=== PATIENT | male | born 1960 | race Caucasian/White ===

== ENCOUNTER 2018-10-19 07:51 | Emergency (ER) | payer OTHER ==
[2018-10-19] MEDS ORDERED: NITROGLYCERIN 0.4 MG TAB SL ONE (08:02)
[2018-10-19] MEDS ORDERED: ASPIRIN 81 MG CHEWABLE CTB ONE (08:02)
[2018-10-19 08:04] VITALS: RESP 18; TEMP 97.6
[2018-10-19] MEDS: NITROGLYCERIN 0.4 MG TAB SL PRN ×5 (08:04→09:29)
[2018-10-19] MEDS ORDERED: SODIUM CHLORIDE 0.9% FLUSH 10 ML SOL IV PRN (08:04)
[2018-10-19] MEDS ORDERED: ASPIRIN 81 MG CHEWABLE CTB PO STA (08:04)
[2018-10-19] MEDS ORDERED: MORPHINE SULFATE 10 MG/ML SOL IV PRN (08:04)
[2018-10-19 08:12] LABS: BASOPHILS % (AUTO) 1 % (0-3); EOSINOPHILS % (AUTO) 2 % (0-9); HEMATOCRIT 44 % (39-53); HEMOGLOBIN 14.5 gm/dl (13.5-17.7); LYMPHOCYTES % (AUTO) 17.2 % (10-50); MEAN CORPUSCULAR HEMOGLOBIN 30.5 pg (27.0-32.0); MEAN CORPUSCULAR HGB CONC 32.6 gm/dl (32.0-36.0); MEAN CORPUSCULAR VOLUME 93 fL (80-100); MONOCYTES % (AUTO) 7.2 % (0-12); NEUTROPHILS % (AUTO) 72.6 % (37-80)
[2018-10-19] MEDS ORDERED: SODIUM CHLORIDE 0.9% 1000ML 1,000 ML IV SCH (08:15)
[2018-10-19 08:19] LABS: INR 1.08 (0.87-1.13)
[2018-10-19 08:23] LABS: ALBUMIN 3.9 gm/dl (3.4-5.0); ALKALINE PHOSPHATASE 70 IU/L (46-116); ALT 39 IU/L (14-63); AST 23 IU/L (15-37); BILIRUBIN,TOTAL 0.4 mg/dl (0.2-1.0); BLOOD UREA NITROGEN 12 mg/dl (7-18); CALCIUM 8.7 mg/dl (8.5-10.1); CARBON DIOXIDE 27.3 mEq/L (21-32); CHLORIDE 98 mMol/L (98-107); CREATININE 0.84 mg/dl (0.80-1.30); GLUCOSE 119 mg/dl (74-106); TOTAL PROTEIN 7.3 gm/dl (6.4-8.2); TROP I < 0.017 ng/ml (0.000-0.056)
[2018-10-19] MEDS ORDERED: LIDOCAINE HCL 2% (VISCOUS) 15 ML SOL MT ONE (08:44)
[2018-10-19] MEDS ORDERED: ALUMINUM/MAGNESIUM 30 ML SUS PO ONE (08:44)
[2018-10-19] MEDS ORDERED: ALUMINUM/MAGNESIUM 30 ML SUS ONE (08:45)
[2018-10-19] MEDS ORDERED: LIDOCAINE HCL 2% (VISCOUS) 15 ML SOL ONE (08:46)
[2018-10-19] MEDS ORDERED: NITROGLYCERIN 0.4 MG TAB SL PRN (09:11)
[2018-10-19 12:07] VITALS: O2SAT 95
[2018-10-19 12:10] VITALS: BP 180/82; PULSE 56
== END 2018-10-19 11:59 | disposition home or self-care (01) | DRG 313 ==
LOC: ED 07:51
DX: R07.9 Chest pain, unspecified (principal); R11.2 Nausea with vomiting, unspecified; I10 Essential (primary) hypertension; E78.5 Hyperlipidemia, unspecified
CPT/HCPCS: 36415; 71045; 80053; 84484; 85025; 85610; 85730; 93005; 96365; 96366; 99284; 99285; A9270-GY